=== PATIENT | female | born 1980 | race Caucasian/White ===

== ENCOUNTER 2016-06-07 08:18 | Observation (INO) ==
[2016-06-07 08:54] LABS: Basophils % 0.1 %; Eosinophils # 0.1 K/mcL (0.0-0.6); Eosinophils % 1.2 %; Hematocrit 37.1 % (35.3-44.9); Hemoglobin 12.4 g/dL (11.5-15.4); Immature Granulocytes % 0.7 % (0-4); Lymphocytes # 1.7 K/mcL (0.6-4.6); Lymphocytes % 22.2 %; Mean Corpuscular HGB Conc 33.4 g/dL (31.6-35.5); Mean Corpuscular Hemoglobin 28.2 pg (28.0-33.3); Mean Corpuscular Volume 84.5 fL (83.0-100.0); Mean Platelet Volume 10.5 fL (9.4-12.4); Monocytes # 0.4 K/mcL (0.0-1.3); Monocytes % 5.9 %; Neutrophils # 5.2 K/mcL (1.6-8.9); Platelet Count 219 K/mcL (140-400); Red Blood Count 4.39 M/mcL (3.82-4.97); Red Cell Distribution Width 12.6 % (11.5-14.5); Segmented Neutrophils % 69.9 %
--- NOTE | 2016-06-07 09:00 | Emergency Department Note ---
Disposition Clinical Impression: Incomplete Disposition: Admitted As Inpatient Condition: Good Time of Disposition: 13:12 HPI - General Chief complaint: ED Vaginal Bleeding Stated complaint: ABD Pain / Vaginal Bleeding 12 weeks preg Time Seen by Provider: 06/07/16 08:24 Source: patient, family Limitations: no limitations Nursing Notes Reviewed: Yes Vital Signs Reviewed: Yes - History of Present Illness HPI Narrative: 36-year-old nontoxic-appearing female presents to the emergency department with a chief complaint of vaginal bleeding and pelvic pain. The patient states that she was given Misoprostol this past by her STYLIST ASSISTANT, Dr. Saini, to facilitate expulsion of a spontaneously aborted fetus. She states that at the time, she was approximately 12 weeks of gestation. She states that there have been no growth since approximately 9 weeks of gestation, therefore, her OB /CEMENT SPRAYER HELPER decided to administer the Misoprostol. She states that shortly after the administration of Misoprostol, she began experiencing sharp pelvic cramping. She states that this has gone on continuously since, however, she was instructed that this could be expected after administration of the medication. She states that for the past 3 days, she has experienced vaginal bleeding that began as "bharat" in color, however has progressed to bright red vaginal bleeding. She states that she is saturating more than 1 pad per hour. She states that this heavy bleeding began this morning upon waking. She rates her pelvic pain and 8 out of 10 on a 10 point scale and describes it as sharp in nature. She does complain of nausea, however denies any vomiting, fever, chills , or diarrhea. She denies any dysuria or other urinary symptoms. Pt Subjective Complaint: vaginal bleeding, other (Pelvic pain) Onset (ago): day(s) Consistency: Worsening Pain Severity: severe Pain Scale: 8 Quality: cramping Improves with: none Worsens with: none Associated symptoms: Reports: nausea. Denies: vomiting, dysuria, malaise, shortness of breath - Related Data Home Medications Medication Instructions Recorded Confirmed Ibuprofen [Ibuprofen] 800 mg PO TID 06/07/16 06/07/16 Pediatric Multivit Comb. No.49 2 tab PO DAILY 06/07/16 06/07/16 [Flintstones Gummies] Allergies Allergy/AdvReac Type Severity Reaction Status Date / Time codeine AdvReac Nausea Verified 06/20/15 12:52 Constitutional: Denies: fever, chills, weakness, weight change Eyes: Denies: eye pain, eye discharge, vision change ENT ED: Denies: ear pain, throat pain, dental pain, hearing loss, epistaxis, congestion, dysphagia Cardiovascular: Denies: chest pain, palpitations, dyspnea on exertion, edema, syncope Respiratory: Denies: cough, dyspnea, wheezes, hemoptysis, stridor Gastrointestinal: Denies: abdominal pain, nausea, vomiting, diarrhea, constipation, hematemesis, melena, hematochezia Genitourinary: Reports: as per HPI, other (Vaginal bleeding, pelvic pain). Denies: dysuria, frequency, hematuria, discharge Musculoskeletal: Denies: back pain, neck pain, arthralgia, myalgia Integumentary: Denies: rash, abrasion, lesions Neurological: Denies: headache, weakness, numbness, paresthesias, confusion, abnormal gait, vertigo Psychiatric: Denies: anxiety, depression, suicidal thoughts, homicidal thoughts , auditory hallucinations, visual hallucinations Endocrine: Denies: fatigue Hematological/Lymphatic: Denies: easy bleeding, easy bruising Allergic/Immunologic: Denies: facial swelling, urticaria PMH - Social History Smoking Status: Never smoker Alcohol use: Reports: none Drug use: Reports: none Physical Exam - General Limitations: no limitations General appearance: alert, in no apparent distress - Head Head exam: atraumatic, normocephalic, normal inspection - Eye Eye exam: Present: normal appearance, PERRL, EOMI. Absent: nystagmus - ENT ENT exam: mucous membranes moist - Neck Neck exam: Present: normal inspection, full ROM, trachea midline - Chest Chest inspection: Present: normal inspection, symmetric chest wall rise - Respiratory Respiratory exam: Present: normal lung sounds bilaterally. Absent: respiratory distress, wheezes, stridor, accessory muscle use, prolonged expiratory phase - Cardiovascular Cardiovascular exam: Present: regular rate, normal rhythm, normal heart sounds - Abdominal Exam Abdominal exam: Present: soft, Non-Tender, normal bowel sounds. Absent: tenderness, distention, guarding, rebound, rigidity, mass - Female Hooker Laster present during exam: Yes (MAT Donald) External Exam: Present: normal external exam Speculum Exam: Present: cervical OS closed, vaginal bleeding (Moderate, bright red, with 2 large clots. Vaginal vault full of bright red blood prior to the removal of a clot. Bleeding appeared to subside after clot removal.). Absent: erythema - Extremities Exam Extremities exam: Present: normal inspection, full ROM. Absent: tenderness, pedal edema - Neurological Exam Neurological exam: Present: alert, oriented X3 - Psychiatric Psychiatric exam: Present: normal affect, normal mood - Skin Skin exam: Present: warm, dry, intact, normal color Course Course Narrative: I have discussed this patient's case with Dr. Kim. Dr. Kim has had a face-to- face evaluation with the patient as well as has reviewed her laboratory and ultrasound results. 1210: at this time, we are awaiting ultrasound results. 1310: Dr. Kim has discussed this patient's case personally with Dr. Goodman. Dr. Goodman has accepted the patient for admission to this hospital for further observation and treatment of an incomplete with intractable pain. - Consultations Consultation #1: I spoke with Dr. Saini, the patient's STYLIST ASSISTANT. Dr. Saini states that the vaginal bleeding, pelvic cramping, and passage of clots can be expected after the administration of the Misoprostol. He states that since the patient verbalized concern for the possibility of a uterine rupture due to her previous section, that we could "scan her". This with my attending physician, Dr. Kim. Dr. Kim states that we should obtain better imaging of the uterus through a transvaginal ultrasound rather than a CT of the abdomen and pelvis., At this time, we are awaiting results of the transvaginal ultrasound. I have discussed this with the patient and the patient is in agreement. Time: 09:33 Consultation #2: Per Dr. Kim's recommendations, I spoke with Dr. Goodman, STYLIST ASSISTANT wheelchair van operator first responder regarding the possibility of admission for observation and pain control. Dr. Goodman states that as the patient has stable vital signs and is hemodynamically stable , he cannot accept the patient for admission at this time. He recommends contacting the patient's STYLIST ASSISTANT Dr. Saini for further recommendations. Time: 12:35 Consultation #3: I spoke with Dr. Saini, the patient's STYLIST ASSISTANT. Dr. Saini states that since the patient is requiring narcotics for pain control, she is unstable for transport". He goes on to state that if the patient requires admission, vital, the patient must be admitted here. I will discuss Dr. Saini's recommendations with the attending physician, Dr. Kim. Time: 12:46 Vital Signs Temperature 99.1 F 06/07/16 08:22 Pulse Rate 89 06/07/16 08:22 Respiratory Rate 18 06/07/16 08:22 Blood Pressure 154/117 06/07/16 08:22 O2 Sat by Pulse Oximetry 99 06/07/16 08:22 Temperature 97.9 F 06/07/16 14:48 Pulse Rate 90 06/07/16 14:48 Respiratory Rate 16 06/07/16 14:48 Blood Pressure 128/79 06/07/16 14:48 O2 Sat by Pulse Oximetry 99 06/07/16 14:48 Oxygen Delivery Oxygen Delivery Room Air OB/Uterine Contractions - Medical Records Medical records reviewed: Yes I reviewed the patient's medical records. - Lab Data Lab results reviewed: Yes I reviewed the patient's lab results. Lab results narrative: Laboratory Last Values WBC 7.4 K/mcL (4.3-11.1) 06/07/16 08:47 RBC 4.39 M/mcL (3.82-4.97) 06/07/16 08:47 Hgb 12.4 g/dL (11.5-15.4) 06/07/16 08:47 Hct 37.1 % (35.3-44.9) 06/07/16 08:47 MCV 84.5 fL (83.0-100.0) 06/07/16 08:47 MCH 28.2 pg (28.0-33.3) 06/07/16 08:47 MCHC 33.4 g/dL (31.6-35.5) 06/07/16 08:47 RDW 12.6 % (11.5-14.5) 06/07/16 08:47 Plt Count 219 K/mcL (140-400) 06/07/16 08:47 MPV 10.5 fL (9.4-12.4) 06/07/16 08:47 Immature Gran % 0.7 % (0-4) 06/07/16 08:47 Seg Neutrophils % 69.9 % 06/07/16 08:47 Lymphocytes % 22.2 % 06/07/16 08:47 Monocytes % 5.9 % 06/07/16 08:47 Eosinophils % 1.2 % 06/07/16 08:47 Basophils % 0.1 % 06/07/16 08:47 Neutrophils # 5.2 K/mcL (1.6-8.9) 06/07/16 08:47 Lymphocytes # 1.7 K/mcL (0.6-4.6) 06/07/16 08:47 Monocytes # 0.4 K/mcL (0.0-1.3) 06/07/16 08:47 Eosinophils # 0.1 K/mcL (0.0-0.6) 06/07/16 08:47 Basophils # 0.0 K/mcL (0.0-0.2) 06/07/16 08:47 PT 11.9 Seconds (9.4-12.1) 06/07/16 08:47 INR 1.1 06/07/16 08:47 APTT 32.4 Seconds (26.0-36.0) 06/07/16 08:47 Sodium 137 mEq/L (136-145) 06/07/16 08:47 Potassium 4.4 mEq/L (3.5-4.5) 06/07/16 08:47 Chloride 105 mEq/L (98-109) 06/07/16 08:47 Carbon Dioxide 25 mEq/L (19-29) 06/07/16 08:47 BUN 9 mg/dL (7-20) 06/07/16 08:47 Creatinine 0.78 mg/dL (0.57-1.11) 06/07/16 08:47 Est GFR ( Amer) > 60 (> 60) 06/07/16 08:47 Est GFR (Non-Af Amer) > 60 (> 60) 06/07/16 08:47 BUN/Creatinine Ratio 12 (6-26) 06/07/16 08:47 Glucose 103 mg/dL (70-99) H 06/07/16 08:47 Calculated Osmolality 283 (280-300) 06/07/16 08:47 Calcium 9.0 mg/dL (8.6-10.8) 06/07/16 08:47 Beta HCG, Quant 2601 mIU/ml (0-4) H 06/07/16 08:47 Blood Type O POSITIVE 06/07/16 08:47 Result diagrams: 06/07/16 08:47 06/07/16 08:47 Lab Results 06/07/16 06/07/16 06/07/16 Range/Units 08:47 08:47 08:47 WBC 7.4 (4.3-11.1) K/mcL RBC 4.39 (3.82-4.97) M/mcL Hgb 12.4 (11.5-15.4) g/dL Hct 37.1 (35.3-44.9) % MCV 84.5 (83.0-100.0) fL MCH 28.2 (28.0-33.3) pg MCHC 33.4 (31.6-35.5) g/dL RDW 12.6 (11.5-14.5) % Plt Count 219 (140-400) K/mcL MPV 10.5 (9.4-12.4) fL Immature Gran % 0.7 (0-4) % Seg Neutrophils % 69.9 % Lymphocytes % 22.2 % Monocytes % 5.9 % Eosinophils % 1.2 % Basophils % 0.1 % Neutrophils # 5.2 (1.6-8.9) K/mcL Lymphocytes # 1.7 (0.6-4.6) K/mcL Monocytes # 0.4 (0.0-1.3) K/mcL Eosinophils # 0.1 (0.0-0.6) K/mcL Basophils # 0.0 (0.0-0.2) K/mcL PT 11.9 (9.4-12.1) Seconds INR 1.1 APTT 32.4 (26.0-36.0) Seconds Sodium 137 (136-145) mEq/L Potassium 4.4 (3.5-4.5) mEq/L Chloride 105 (98-109) mEq/L Carbon Dioxide 25 (19-29) mEq/L BUN 9 (7-20) mg/dL Creatinine 0.78 (0.57-1.11) mg/dL Est GFR ( Amer) > 60 (> 60) Est GFR (Non-Af Amer) > 60 (> 60) BUN/Creatinine Ratio 12 (6-26) Glucose 103 H (70-99) mg/dL Calculated Osmolality 283 (280-300) Calcium 9.0 (8.6-10.8) mg/dL Beta HCG, Quant 2601 H (0-4) mIU/ml Urine Color (Yellow) Urine Clarity (Clear) Urine pH (5.0-8.0) pH Units Ur Specific [place] (1.010-1.025) Urine Protein (Neg-Trace) mg/dL Urine Glucose (UA) (Normal) mg/dL Urine Ketones (Negative) mg/dL Urine Blood (Negative) Urine Nitrite (Negative) Urine Bilirubin (Negative) Urine Urobilinogen (Normal) mg/dL Ur Leukocyte Esterase (Negative) Urine Microscopic RBC (0-3) per hpf Urine Microscopic WBC (0-3) per hpf Ur Squamous Epith Cells (None-Few) per lpf Urine Bacteria (None-Few) per hpf Hyaline Casts (None-Few) per lpf Ur Culture Indicated? (NO) Blood Type 06/07/16 06/07/16 Range/Units 08:47 12:52 WBC (4.3-11.1) K/mcL RBC (3.82-4.97) M/mcL Hgb (11.5-15.4) g/dL Hct (35.3-44.9) % MCV (83.0-100.0) fL MCH (28.0-33.3) pg MCHC (31.6-35.5) g/dL RDW (11.5-14.5) % Plt Count (140-400) K/mcL MPV (9.4-12.4) fL Immature Gran % (0-4) % Seg Neutrophils % % Lymphocytes % % Monocytes % % Eosinophils % % Basophils % % Neutrophils # (1.6-8.9) K/mcL Lymphocytes # (0.6-4.6) K/mcL Monocytes # (0.0-1.3) K/mcL Eosinophils # (0.0-0.6) K/mcL Basophils # (0.0-0.2) K/mcL PT (9.4-12.1) Seconds INR APTT (26.0-36.0) Seconds Sodium (136-145) mEq/L Potassium (3.5-4.5) mEq/L Chloride (98-109) mEq/L Carbon Dioxide (19-29) mEq/L BUN (7-20) mg/dL Creatinine (0.57-1.11) mg/dL Est GFR ( Amer) (> 60) Est GFR (Non-Af Amer) (> 60) BUN/Creatinine Ratio (6-26) Glucose (70-99) mg/dL Calculated Osmolality (280-300) Calcium (8.6-10.8) mg/dL Beta HCG, Quant (0-4) mIU/ml Urine Color Yellow (Yellow) Urine Clarity Clear (Clear) Urine pH 5.5 (5.0-8.0) pH Units Ur Specific [place] 1.013 (1.010-1.025) Urine Protein Negative (Neg-Trace) mg/dL Urine Glucose (UA) Normal (Normal) mg/dL Urine Ketones Negative (Negative) mg/dL Urine Blood Large H (Negative) Urine Nitrite Negative (Negative) Urine Bilirubin Negative (Negative) Urine Urobilinogen Normal (Normal) mg/dL Ur Leukocyte Esterase Trace H (Negative) Urine Microscopic RBC TNTC H (0-3) per hpf Urine Microscopic WBC 0-3 (0-3) per hpf Ur Squamous Epith Cells Many H (None-Few) per lpf Urine Bacteria Few (None-Few) per hpf Hyaline Casts None Seen (None-Few) per lpf Ur Culture Indicated? YES A (NO) Blood Type O POSITIVE - Radiology Data Radiology results reviewed: Yes I reviewed the patient's radiology results. Obstetrics Ultrasound 06/07/16 09:39 IMPRESSION: 1. Sonographic findings compatible with early failure with large gestational sac in the cervix and a pole measuring 2.81 cm and no heart rate. 2. Nonvisualization of the bilateral ovaries. Findings were discussed with Dr. Kim on 06/07/2016 at 12:30 p.m.. D/ / 06/07/2016 12:34:47 Jazmin Gruber MD / toni Interpreting Provider: Jazmin Gruber MD Attestation Statement - Attestation Attestation: I examined this patient and my medical decision-making was reviewed with the PUBLIC ADDRESS TECHNICIAN/PA/Advanced Practice Nurse/Resident Physician. I agree with the documented findings, disposition and treatment plan as described except to the extent set forth below. Patient emergency department complaining of pain and bleeding. Patient was seen last and diagnosed with incomplete . She received deformities across all pills. She states she is now bleeding heavily and cramping. She has an appointment with her verification engineer at 3:00 today. On exam she is uncomfortable. Lower abdominal tenderness. Pelvic exam showed large clots removed from the vaginal vault. Plan. Ultrasound. Ultrasound shows incomplete AB. Fetus at the cervix. Patient still having a significant amount of pain. Discussed with OB and will be admitted for possible D&C.
[2016-06-07 09:02] LABS: INR 1.1; Prothrombin Time 11.9 Seconds (9.4-12.1)
[2016-06-07 09:05] LABS: Activated Partial Thrombo Time 32.4 Seconds (26.0-36.0)
[2016-06-07 09:06] LABS: BUN/Creatinine Ratio 12 (6-26); Blood Urea Nitrogen 9 mg/dL (7-20); Carbon Dioxide 25 mEq/L (19-29); Chloride 105 mEq/L (98-109); Glucose 103 mg/dL (70-99); Osmolality,Calculated 283 (280-300); Potassium 4.4 mEq/L (3.5-4.5); Sodium 137 mEq/L (136-145); eGFR For African Americans > 60 (> 60); eGFR For Non-African Americans > 60 (> 60)
[2016-06-07] MEDS ORDERED: *HR* Morphine 2 MG/ML SYRINGE IVP ONE (09:39)
[2016-06-07] MEDS ORDERED: Ondansetron 4 MG/2 ML VIAL IVP ONE ×2 (09:39→12:35)
[2016-06-07] MEDS ORDERED: *HR* HYDROmorphone (PF) 1 MG/ML SYRINGE IV ONE (10:09)
[2016-06-07] MEDS ORDERED: *HR* HYDROmorphone (PF) 1 MG/ML SYRINGE IVP ONE (12:35)
[2016-06-07 13:14] LABS: Bilirubin,Urine Negative (Negative); Blood,Urine Large (Negative); Clarity,Urine Clear (Clear); Color,Urine Yellow (Yellow); Glucose,Urine (UA) Normal (Normal); Ketones,Urine Negative (Negative); Leukocyte Esterase,Urine Trace (Negative); Nitrite,Urine Negative (Negative); PH,Urine 5.5 pH Units (5.0-8.0); Protein,Urine Negative (Neg-Trace); Specific Gravity,Urine 1.013 (1.010-1.025); Urobilinogen,Urine Normal (Normal)
[2016-06-07 13:17] LABS: Hyaline Casts,Urine None Seen per lpf (None-Few); RBC,Urine TNTC per hpf (0-3); Squamous Epithelial Cell,Urine Many per lpf (None-Few); WBC,Urine 0-3 per hpf (0-3)
[2016-06-07 13:28] LABS: Bacteria,Urine Few per hpf (None-Few)
[2016-06-07] MEDS ORDERED: *HR* HYDROmorphone 20 MG/20 ML PCA IVC PRN (15:05)
--- NOTE | 2016-06-07 15:40 | OB/GYN History & Physical ---
Date of Encounter: 06/07/16 Time of Encounter: 15:37 Assessment and Plan (1) Inevitable Current visit: Yes Status: Acute Will proceed with suction D&C. Risks reviewed, consent signed. History of Present Illness HPI: Ms. Llanos is a 36 year old female at approximately 12 weeks' gestation who was seen in the emergency department with complaints of severe pelvic cramping and heavy vaginal bleeding and clots. Patient sees Dr. Saini for her . She was diagnosed with a missed AB recently and was treated with misoprostol for pills by mouth 1 week ago. She states at that time ultrasound was consistent with a missed AB with EGA of 9 weeks. Patient states she had cramping since the misoprostol O week ago but developed significant pain and cramping and heavy bleeding beginning last night. She is Rh+. An ultrasound was performed while she was in the emergency department with a crown rump length consistent with 9 weeks and 4 days and no cardiac activity. The gestational sac was noted to be within the cervix. Patient continues to complain of severe pelvic pain. He is requesting to proceed with a D&C. Past Med Surg Social Fam HX - Past Medical History Medical history: other Psychiatric history: no psych history - Past Surgical History Surgical History: other (Thyroglossal duct cyst, tonsils and adenoids, section) - Social History Smoking Status: Never smoker Smokeless Tobacco Status: No Alcohol use: none Drug use: none Obstetrical History - Pregnancies : 2 Para: 1 Medications and Allergies Ibuprofen [Ibuprofen] 800 mg PO TID 06/07/16 [History] Pediatric Multivit Comb. No.49 [Flintstones Gummies] 2 tab PO DAILY 06/07/16 [ History] Allergies codeine Adverse Reaction (Verified 06/20/15 12:52) Nausea Exam - Vital Signs Vital signs: Initial Vital Signs Temp Pulse Resp BP Pulse Ox 99.1 F 89 18 154/117 99 06/07/16 08:22 06/07/16 08:22 06/07/16 08:22 06/07/16 08:22 06/07/16 08:22 - Constitutional Constitutional: well developed, well nourished, moderate distress, morbidly obese - Comments Comments: Exam per ED physician Results Result Diagrams: 06/07/16 08:47 06/07/16 08:47 Abnormal lab results Glucose 103 mg/dL (70-99) H 06/07/16 08:47 Beta HCG, Quant 2601 mIU/ml (0-4) H 06/07/16 08:47 Urine Blood Large (Negative) H 06/07/16 12:52 Ur Leukocyte Esterase Trace (Negative) H 06/07/16 12:52 Urine Microscopic RBC TNTC per hpf (0-3) H 06/07/16 12:52 Ur Squamous Epith Cells Many per lpf (None-Few) H 06/07/16 12:52 Ur Culture Indicated? YES (NO) A 06/07/16 12:52 All other labs normal.
--- NOTE | 2016-06-07 15:51 | Anesthesia Evaluation PreOp ---
Date of Encounter: 06/07/16 Time of Encounter: 16:25 - Past History Planned Operation: Suction D&C (missed ) Cardiac History: Denies any Significant Hx Pulmonary History: Denies Any Significant HX WHAT JOB TITLES MEAN History: Denies Any Significant HX Other Medical History: Other (BMI 50) Anesthesia History: Problems (nausea) Alcohol Use: none Drug use: none Medications and Allergies Ibuprofen [Ibuprofen] 800 mg PO TID 06/07/16 [History] Pediatric Multivit Comb. No.49 [Flintstones Gummies] 2 tab PO DAILY 06/07/16 [ History] Allergies codeine Adverse Reaction (Verified 06/20/15 12:52) Nausea - Meds/Allergy Pre-op Review Medications Reviewed: Yes Allergies Reviewed: Yes Beta Blockers on Current Med List: No Anesthesia Results - Labs 06/07/16 08:47 06/07/16 08:47 - Imaging EKG: report reviewed, image reviewed (SR) Anesthesia Exam Last Vital Signs Temp 97.9 F 06/07/16 14:48 Pulse 90 06/07/16 14:48 Resp 16 06/07/16 14:48 BP 128/79 06/07/16 14:48 Pulse Ox 99 06/07/16 14:48 Weight: 141 kg - HEENT Pupil (Motor): Pupils equal, EOMI Mallampati: III Teeth: Normal Oral Opening: Greater than 3 - WHAT JOB TITLES MEAN LOC: Oriented WHAT JOB TITLES MEAN Motor: Normal RUE, Normal LUE, Normal RLE, Normal LLE, Normal Face WHAT JOB TITLES MEAN Sensory: Normal: RUE, LUE, RLE, LLE, Face - Cardiac Rhythm: Regular Murmur: None - Pulmonary Breath Sounds: bilateral Clear Respiratory Effort: Symmetrical Anesthesia Assess/Plan ASA Score: 3 Modified Maurizio Scale for Level of Consciousness: Cooperative, oriented, and tranquil Anesthetic Plan: General Monitoring Plan: Standard Monitors Recovery Plan: PACU
[2016-06-07] MEDS ORDERED: Ringers Solution, Lactated 1,000 ML ONE (15:52)
[2016-06-07] MEDS ORDERED: *HR* HYDROmorphone 2 MG/ML SYRINGE IVP ONE (16:00)
[2016-06-07] MEDS ORDERED: *HR* FentaNYL (PF) 100 MCG/2 ML VIAL ONE (16:14)
[2016-06-07] MEDS ORDERED: Lidocaine -MPF 2% 2 ML VIAL ONE (16:14)
[2016-06-07] MEDS ORDERED: Dexamethasone 4 MG/ML VIAL ONE (16:14)
[2016-06-07] MEDS ORDERED: *HR* Propofol 200 MG/20 ML VIAL IVP ONE (16:14)
[2016-06-07] MEDS ORDERED: Ondansetron 4 MG/2 ML VIAL ONE (16:14)
[2016-06-07] MEDS ORDERED: *HR* Midazolam HCl 2 MG/2 ML VIAL ONE (16:14)
[2016-06-07] MEDS ORDERED: *HR* Succinylcholine 200 MG/10 ML VIAL IVP ONE (16:15)
[2016-06-07] MEDS ORDERED: Scopolamine Patch 1.5 MG PATCH.TD72 ONE (16:20)
[2016-06-07] MEDS ORDERED: Clindamycin 900 MG/50 ML 900 MG/50 ML IV.SOLN IVPB ONE (16:41)
[2016-06-07] MEDS ORDERED: Acetaminophen IV 1,000 MG/100 ML INFUS..BTL ONE (16:43)
[2016-06-07] MEDS ORDERED: Ketorolac 30 MG/ML VIAL ONE (16:44)
[2016-06-07] MEDS ORDERED: Methylergonovine 0.2 MG/ML AMPUL IM ONE (16:53)
[2016-06-07] MEDS ORDERED: Ferric Subsulfate 8 GM TOPICAL ONE (16:59)
[2016-06-07] MEDS ORDERED: *HR* OxyCODONE Immed Rel 5 MG TABLET PO ONE (17:16)
--- NOTE | 2016-06-07 17:22 | Discharge Summary ---
Outpatient Proc Discharge Plan - Plan Prescriptions: Ketorolac [Toradol] 10 mg PO Q6HR PRN #10 tablet PRN Reason: Pain Methylergonovine Maleate [Methergine] 0.2 mg PO Q6HR #8 tablet Home Medications: Ketorolac [Toradol] 10 mg PO Q6HR PRN #10 tablet 06/07/16 [Rx] Methylergonovine Maleate [Methergine] 0.2 mg PO Q6HR #8 tablet 06/07/16 [Rx] Pediatric Multivit Comb. No.49 [Flintstones Gummies] 2 tab PO DAILY 06/07/16 [ History]
--- NOTE | 2016-06-07 17:25 | Operative Note ---
Date of procedure: 06/07/16 Pre-op diagnosis: Inevitable Post-op diagnosis: same Procedure: Suction D&C Anesthesia: GETA Surgeon: Peri Goodman Estimated blood loss (cc): 400 Specimen: Products of conception Condition: stable Disposition: PACU Procedure in Detail: Patient was taken the operative places supine position and a general anesthetic was administered. She was then placed in a modified dorsal lithotomy position skin was prepped and draped in usual sterile fashion. A timeout procedure was performed. A weighted speculum was placed in vagina and the anterior lip of the cervix was grasped with a single-tooth tenaculum. Products of conception were noted to be at the external os. A 12 mm curette was used to perform a suction curettage with a large amount of tissue obtained. A Bell curet was then used to perform a sharp curettage with no further tissue obtained and good endometrial texture noted. At all times gentle care was used around the anterior surface of the uterus. Bleeding was controlled with IV Pitocin and IM Methergine. A Stolp procedure well, all sponge needle and instrument counts reported as correct. Blood loss was 400 mL's. The patient was taken the recovery room in stable condition.
--- NOTE | 2016-06-07 17:50 | Anesthesia Evaluation Post Op ---
Date of Encounter: 06/07/16 Time of Encounter: 17:50 - Vital Signs Vital Signs: Last Vital Signs Temp 97.9 F 06/07/16 17:24 Pulse 75 06/07/16 17:44 Resp 18 06/07/16 17:44 BP 117/72 06/07/16 17:44 Pulse Ox 97 06/07/16 17:44 - Lungs Lungs: Clear Ascult./Percussion - Airway Airway: Non-obstructed - Cardiovascular Regular Rate - Mental Status Mental Status: Alert & Oriented, Answers Appropriately - Pain Pain Scale: 2 - Nausea Vomiting Nausea Vomiting: Not Present - Hydration Hydration: Ice chips - Discharge PostOp Status: Transfer Patient to floor
[2016-06-07] MEDS ORDERED: *HR* OxyCODONE/APAP 5/325 TABLET PO ONE (18:43)
[2016-06-07 20:15] VITALS: BP 122/60
== END 2016-06-07 19:52 | disposition home or self-care (01) ==
LOC: EMEROO 08:18 → 1NENUOBS 08:18
PROC: [UNRECOGNIZED PROCEDURE] (2016-06-07 15:45)